=== PATIENT | male | born 1995 | race Caucasian/White ===

== ENCOUNTER 2025-07-28 10:24 | Emergency (ER) | payer BC ==
[~2025-07-28] VITALS: Ht 170.2 cm; Wt 57.0 kg
[2025-07-28 10:42] VITALS: O2SAT 99
[2025-07-28 12:19] LABS: BASOPHILS % 0.4 % (0.0-2.0); EOSINOPHILS % 0.1 % (0.0-5.0); HEMATOCRIT. 45.1 % (42.0-52.0); HEMOGLOBIN. 15.9 g/dL (14.0-18.0); LYMPHOCYTES % 12.3 % (20.0-50.0); MEAN PLATELET VOLUME 7.3 fl (7.4-10.4); MONOCYTES % 5.8 % (2.0-8.0); NEUTROPHILS % 81.4 % (40.0-76.0); PLATELET 274 x1000/uL (130-400); RED BLOOD CELL COUNT 5.06 mill/uL (4.7-6.1); RED CELL DISTRIBUTION WIDTH 12.2 % (11.6-14.6)
[2025-07-28 12:33] LABS: CREATININE 1.1 mg/dL (0.6-1.3); UREA NITROGEN BLOOD 10 mg/dL (9-23)
[2025-07-28 12:35] LABS: TROPONIN I HIGH SENSITIVITY < 4 ng/L (3.0-53)
[2025-07-28 14:32] VITALS: BP 118/67; PULSE 69; RESP 18; TEMP 37.1; O2SAT 100
== END 2025-07-28 14:34 | disposition home or self-care (01) ==
LOC: ER 10:24
DX: R07.9 Chest pain, unspecified (principal); R51.9 Headache, unspecified
CPT/HCPCS: 36415; 71045; 80048; 84484; 85025; 93005; 99285